=== PATIENT | male | born 1985 | race Two or more races ===

== ENCOUNTER 2018-01-17 20:37 | Emergency (ER) | payer OTHER ==
[~2018-01-17] VITALS: Ht 172.7 cm; Wt 81.2 kg
[2018-01-17 20:53] VITALS: Ht 172.7 cm; Wt 81.2 kg
[2018-01-17 23:12] VITALS: BP 130/72
== END 2018-01-17 23:12 | disposition home or self-care (01) ==
LOC: ED 20:37
DX: S00.01XA Abrasion of scalp, initial encounter (principal); R03.0 Elevated blood-pressure reading, without diagnosis of hypertension; W23.0XXA Caught, crushed, jammed, or pinched between moving objects, initial encounter; Y93.89 Activity, other specified; Y92.89 Other specified places as the place of occurrence of the external cause; Y99.8 Other external cause status
CPT/HCPCS: 90715

== ENCOUNTER 2018-08-27 00:02 | Emergency (ER) | payer OTHER ==
[~2018-08-27] VITALS: Ht 172.7 cm; Wt 81.2 kg
[2018-08-27 00:08] VITALS: Ht 172.7 cm; Wt 81.2 kg
[2018-08-27 02:07] VITALS: BP 116/85
== END 2018-08-27 02:07 | disposition home or self-care (01) ==
LOC: ED 00:02
DX: J45.909 Unspecified asthma, uncomplicated (principal); T78.40XA Allergy, unspecified, initial encounter; X58.XXXA Exposure to other specified factors, initial encounter
CPT/HCPCS: J7512; J7620